=== PATIENT | female | born 1990 | race Caucasian/White ===

== ENCOUNTER 2018-09-07 05:49 | Emergency (ER) | payer BC, OTHER ==
[~2018-09-07] VITALS: Ht 162.6 cm; Wt 86.0 kg
[~2018-09-07 05:49] MED LIST: ALBU18HF2 INH; SUMA6PEN SQ
[2018-09-07 05:52] VITALS: BP 135/83
[2018-09-07] MEDS ORDERED: HYDR-4353 PO (06:39)
== END 2018-09-07 06:47 | disposition home or self-care (01) ==
LOC: ER 05:50
DX: B34.9 Viral infection, unspecified (principal); R00.0 Tachycardia, unspecified; G43.909 Migraine, unspecified, not intractable, without status migrainosus; F17.200 Nicotine dependence, unspecified, uncomplicated; Z88.6 Allergy status to analgesic agent; Z88.8 Allergy status to other drugs, medicaments and biological substances
CPT/HCPCS: 71045; 99283

== ENCOUNTER 2019-07-19 19:14 | Emergency (ER) | payer OTHER ==
[~2019-07-19] VITALS: Ht 162.6 cm; Wt 85.5 kg
[2019-07-19 19:28] VITALS: BP 140/85
== END 2019-07-19 20:25 | disposition home or self-care (01) ==
LOC: EEVIPCON 19:14 → ER 19:14
DX: S89.81XA Other specified injuries of right lower leg, initial encounter (principal); M25.561 Pain in right knee; G43.909 Migraine, unspecified, not intractable, without status migrainosus; J45.909 Unspecified asthma, uncomplicated; Z88.5 Allergy status to narcotic agent; Z88.8 Allergy status to other drugs, medicaments and biological substances; Z79.899 Other long term (current) drug therapy; X58.XXXA Exposure to other specified factors, initial encounter; Y93.89 Activity, other specified; Y92.89 Other specified places as the place of occurrence of the external cause; Y99.8 Other external cause status
CPT/HCPCS: 73564; 99283

== ENCOUNTER 2019-07-21 16:44 | Outpatient (CLI) | payer OTHER | END 2019-07-21 23:59 | disposition home or self-care (01) | LOC: RAD 16:44 | PROVIDERS: ATTEND Internal Medicine | DX: S83.411A Sprain of medial collateral ligament of right knee, initial encounter (principal); M25.461 Effusion, right knee; X58.XXXA Exposure to other specified factors, initial encounter; Y93.89 Activity, other specified; Y92.89 Other specified places as the place of occurrence of the external cause; Y99.8 Other external cause status | CPT/HCPCS: 73721 ==

== ENCOUNTER → 2019-07-29 | Outpatient (CLI) | payer OTHER | END | disposition home or self-care (01) | LOC: ORTHO 15:33 | PROVIDERS: ATTEND Orthopaedic Surgery | DX: S80.01XD Contusion of right knee, subsequent encounter (principal); X50.0XXD Overexertion from strenuous movement or load, subsequent encounter | CPT/HCPCS: G0463 ==

== ENCOUNTER 2019-09-02 15:28 | Outpatient (CLI) | payer OTHER | END 2019-09-02 16:45 | disposition home or self-care (01) | LOC: ORTHO 15:28 | PROVIDERS: ATTEND Orthopaedic Surgery | DX: S80.01XA Contusion of right knee, initial encounter (principal); X58.XXXA Exposure to other specified factors, initial encounter; Y93.89 Activity, other specified; Y92.89 Other specified places as the place of occurrence of the external cause; Y99.8 Other external cause status | CPT/HCPCS: G0463 ==

== ENCOUNTER 2019-10-16 09:30 | Outpatient (CLI) | payer OTHER | END 2019-10-16 09:54 | disposition home or self-care (01) | LOC: ORTHO 09:30 | PROVIDERS: ATTEND Nurse Practitioner | DX: S80.01XD Contusion of right knee, subsequent encounter (principal); X58.XXXD Exposure to other specified factors, subsequent encounter | CPT/HCPCS: G0463 ==